=== PATIENT | female | born 1960 | race Caucasian/White ===

== ENCOUNTER 2017-12-14 04:42 | Inpatient (IN) | payer BC ==
[2017-12-06 15:28] VITALS: Ht 174 cm; Wt 120.4 kg
--- NOTE | 2017-12-06 15:51 | PAT Medication Instructions ---
Service Date December 06, 2017. Current Home Medication List Bupropion Hcl (Bupropion Hcl Er), 200 MG PO BID Calcium/Vitamin D (Os-Wong 500 Plus D), 1 TAB PO QAM Diclofenac Sodium (Topical) (Diclofenac Sodium), 1 APPLN TOP UD PRN for Pain Duloxetine HCl (Cymbalta), 60 MG PO QAM Furosemide (Lasix), 20 MG PO QAM Lisinopril (Zestril), 10 MG PO QAM Loratadine (Loratadine), 1 CAP PO QAM Lorazepam (Ativan), 0.5 MG PO UD PRN for ANXIETY Meloxicam (Mobic), 15 MG PO QAM Metformin Hcl (Glucophage), 500 MG PO BID Tramadol HCl (Tramadol HCl), 1 TAB PO QAM Medication Instructions For Your Scheduled Surgery - Hold the following medications the morning of surgery: Calcium/Vitamin D (Os-Wong 500 Plus D), 1 TAB PO QAM Furosemide (Lasix), 20 MG PO QAM Lisinopril (Zestril), 10 MG PO QAM Metformin Hcl (Glucophage), 500 MG PO BID Loratadine (Loratadine), 1 CAP PO QAM Diclofenac Sodium (Topical) (Diclofenac Sodium), 1 APPLN TOP UD PRN for Pain ( otherwise okay to continue per surgeon) Meloxicam (Mobic), 15 MG PO QAM (otherwise okay to continue per surgeon) - Take the following medications the morning of surgery with a sip of water OTHERWISE NOTHING TO EAT OR DRINK AFTER MIDNIGHT: Bupropion Hcl (Bupropion Hcl Er), 200 MG PO BID Duloxetine HCl (Cymbalta), 60 MG PO QAM Lorazepam (Ativan), 0.5 MG PO UD PRN for ANXIETY Tramadol HCl (Tramadol HCl), 1 TAB PO QAM - Take the following medications as scheduled the night before surgery: Bupropion Hcl (Bupropion Hcl Er), 200 MG PO BID Metformin Hcl (Glucophage), 500 MG PO BID Lorazepam (Ativan), 0.5 MG PO UD PRN for ANXIETY If you have any questions please call us at [phone] or [phone] or [phone]
[2017-12-06 16:46] LABS: BASO % 0.4 %; BASO ABS # 0.03 K/uL (0-0.2); EOS ABS # 0.08 K/uL (0-0.5); HEMATOCRIT 43.8 % (37-47); HEMOGLOBIN 14.5 g/dL (12.0-16.0); IG# 0.05 K/uL (0.00-0.02); LYMPH % 30.3 %; LYMPH ABS # 2.39 K/uL (1.2-3.4); MEAN CELL VOLUME 89.4 fL (80-100); MEAN CORPUSCULAR HEMOGLOBIN 29.6 pg (25-34); MEAN CORPUSCULAR HGB CONC 33.1 g/dl (32-36); MEAN PLATELET VOLUME 11.4 fL (7.4-10.4); MONO % 5.6 %; MONO ABS # 0.44 K/uL (0.11-0.59); NEUT % 62.1 %; NEUT ABS # 4.89 K/uL (1.4-6.5); PLATELET COUNT 300 K/uL (130-400); RED CELL DISTRIBUTION WIDTH SD 42.2 fL (36.4-46.3); WHITE BLOOD COUNT 7.88 K/uL (4.8-10.8)
[2017-12-06 16:54] LABS: PTT PATIENT 28.7 SECONDS (21.0-31.0)
[2017-12-06 17:02] LABS: ALBUMIN 3.7 gm/dl (3.4-5.0); CALCIUM 8.8 mg/dl (8.5-10.1); CREATININE 0.8 mg/dl (0.60-1.20); POTASSIUM 3.7 mmol/L (3.5-5.1)
--- NOTE | 2017-12-06 17:29 | DIAGNOSTIC IMAGING REPORT ---
CHEST 2 VIEWS ROUTINE HISTORY: Preop. COMPARISON: None. FINDINGS: The lungs are clear. Cardiac silhouette is normal in size. No pleural effusions. No pneumothorax. IMPRESSION: No acute process. Electronically signed by: Dany Mackay M.D. 12/06/2017 5:27 PM Dictated Date/Time: 12/06/2017 5:27 PM
--- NOTE | 2017-12-13 10:03 | HISTORY & PHYSICAL EXAMINATION ---
DATE OF ADMISSION: 12/14/2017 CHIEF COMPLAINT: Right hip pain. HISTORY OF PRESENT ILLNESS: The patient is a 57-year-old female, seen and evaluated in our office for right hip pain and disability. She takes Meloxicam with minimal relief. She also requires tramadol for pain intermittently. She has pain with activities of daily living. She has pain with prolonged weightbearing and standing activities. She has difficulty with any kneeling, bending, or squatting activities. Due to ongoing pain and disability, she now desires to proceed with right total hip arthroplasty. PAST MEDICAL HISTORY: Obesity, hypertension, type 2 diabetes, depression. PAST SURGICAL HISTORY: Tubal ligation. MEDICATIONS: Bupropion HCL ER 200 mg 2 times daily, calcium plus D 600-800 daily, diclofenac topical gel, Cymbalta 60 mg daily, Lasix 20 mg daily p.r.n., Prinivil 10 mg daily, Claritin 10 mg daily, Ativan 0.5 mg 3 times daily p.r.n. anxiety, meloxicam 50 mg daily, metformin 500 mg twice daily, methocarbamol 750 mg 3 times daily, tramadol 50 mg 3 times daily p.r.n. ALLERGIES: AMITRIPTYLINE WHICH CAUSED SYNCOPE. SOCIAL HISTORY AND REVIEW OF SYSTEMS: Noncontributory. PHYSICAL EXAMINATION: GENERAL: Well-nourished, well-developed, obese female who appears her stated age. HEENT: Normocephalic, atraumatic, extraocular movements intact, oropharynx pink and moist. NECK: Supple without adenopathy. LUNGS: Clear to auscultation bilaterally. HEART: Regular rate and rhythm. ABDOMEN: Soft, nontender, nondistended. EXTREMITIES: The upper extremities are within normal limits. The right hip demonstrates decreased range of motion. There is limitation of active and passive internal/external rotation compared to the left uninvolved. She has pain at end range. X-RAYS: X-rays were reviewed. She has [id number] arthritis of the right hip with complete loss of the joint space. There is evidence of subchondral sclerosis. ASSESSMENT: Right hip degenerative joint disease. PLAN: Risks versus benefits were discussed, consent was obtained. The patient's primary care physician is Michael Rosales PA-C from [place]. We will proceed with right total hip arthroplasty as indicated.
[2017-12-14] VITALS (9 sets, daily range): BP systolic 108–139; BP diastolic 60–86; PULSE 69–83; TEMP 36.4–36.8; O2SAT 93–98
[~2017-12-14] VITALS: Ht 174 cm; Wt 120.4 kg
[~2017-12-14 04:42] MED LIST: BUPR-266 PO; CALC500C70 PO; CYM/30 PO; DICL1GEL34 TOP; FURO-85 PO; GLC/500 PO; LISI-461 PO; LORA-741 PO; LORA10CA10 PO; MELO7.5T5 PO; ULT50 PO
[2017-12-14] MEDS ORDERED: METH-307 PO (05:31)
[2017-12-14] MEDS ORDERED: ACETAMINOPHEN 500 MG TAB PO SCH (06:00)
[2017-12-14] MEDS ORDERED: CeleBREX 200 MG CAP PO SCH (06:00)
[2017-12-14] MEDS ORDERED: GABAPENTIN 300 MG CAP PO SCH (06:00)
[2017-12-14] MEDS ORDERED: LACTATED RINGER'S 1000ML 1,000 ML IV SCH (06:00)
[2017-12-14] MEDS ORDERED: DEXAMETHASONE 4 MG TAB PO SCH (06:00)
[2017-12-14] MEDS ORDERED: METOCLOPRAMIDE HCL 10 MG TAB PO SCH (06:00)
[2017-12-14] MEDS ORDERED: CEFAZOLIN 3000MG IV PUSH 22.5 ML IV SCH (06:00)
[2017-12-14] MEDS ORDERED: FAMOTIDINE 20 MG TAB PO SCH (06:00)
[2017-12-14] MEDS ORDERED: LACTATED RINGER'S 1000ML 500 ML IV SCH (06:00)
[2017-12-14] MEDS ORDERED: MIDAZOLAM HCL 1 MG/ML 2ML VIAL ONE ×2 (06:24)
[2017-12-14] MEDS ORDERED: LIDOCAINE HCL 2% 2 ML VIAL (20MG/ML) ONE (06:24)
[2017-12-14] MEDS ORDERED: PROPOFOL IV EMULSION 10 MG/ML 20 ML VIAL ONE ×2 (06:24→07:50)
[2017-12-14] MEDS ORDERED: FENTANYL CITRATE INJ 50 MCG/1 ML 2 ML VIAL ONE (06:25)
[2017-12-14] MEDS: TRANEXAMIC ACID INJ 1,000 MG in SODIUM CHLORIDE 0.9% 100ML 100 ML IV SCH ×2 (06:30→06:50)
[2017-12-14] MEDS ORDERED: BACITRACIN 50000 UNIT VIAL ONE (06:34)
[2017-12-14] MEDS ORDERED: POVIDONE-IODINE OP SOLN 30 ML BTL ONE (06:34)
[2017-12-14] MEDS ORDERED: BUPIVACAINE 0.5 % 5 MG/1 ML PF 10ML VIAL ONE (06:43)
--- NOTE | 2017-12-14 07:00 | History & Physical Bridge Note ---
H&P Re-Evaluation Bridge Note: I have examined the patient, reviewed the History & Physical and in the interval since the performance of the History & Physical I have noted the following changes of clinical significance: No changes noted
[2017-12-14] MEDS ORDERED: ALUMINUM/MAGNESIUM/SIMETH (MAALOX MAX) 30 ML UDC PO PRN (08:45)
[2017-12-14] MEDS ORDERED: ONDANSETRON INJ 2 MG/ML 2 ML VIAL IV PRN ×2 (08:45→09:00)
[2017-12-14] MEDS ORDERED: MoRPHine SULFATE 4 MG/ML 1 ML CARP\\VIAL IV PRN (08:45)
[2017-12-14] MEDS ORDERED: MAGNESIUM HYDROXIDE SUSP 30 ML UDC PO PRN (08:45)
[2017-12-14] MEDS ORDERED: METOCLOPRAMIDE HCL INJ 5 MG/ML 2 ML VIAL IV PRN (08:45)
[2017-12-14] MEDS ORDERED: ZOLPIDEM TARTRATE 5 MG TAB PO PRN (08:45)
[2017-12-14] MEDS ORDERED: LORAZEPAM 0.5 MG TAB PO PRN (08:45)
[2017-12-14] MEDS: MULTIVITAMIN TAB PO SCH (09:00)
[2017-12-14] MEDS: DOCUSATE SODIUM 100 MG CAP PO SCH ×2 (09:00→20:57)
[2017-12-14] MEDS: FUROSEMIDE 20 MG TAB PO SCH (09:00)
[2017-12-14] MEDS: DULOXETINE HCL 60 MG CAP PO SCH (09:00)
[2017-12-14] MEDS: PANTOprazole SOD 40 MG TAB PO SCH (09:00)
[2017-12-14] MEDS ORDERED: EpHEDrine SULFATE INJ 50 MG/ML AMP IV PRN (09:00)
[2017-12-14] MEDS: LISINOPRIL 10 MG TAB PO SCH (09:00)
[2017-12-14] MEDS ORDERED: PHENYLEPHRINE 100MCG/ML 5ML SYR IV PRN (09:00)
[2017-12-14] MEDS ORDERED: HYDROmorphone INJ 0.5 MG/0.5 ML SYR IV PRN (09:00)
[2017-12-14] MEDS ORDERED: ATROPINE SULFATE 0.1 MG/ML 5ML SYR IV PRN (09:00)
--- NOTE | 2017-12-14 09:22 | DIAGNOSTIC IMAGING REPORT ---
R PELVIS/UNILATERAL HIP 1 VIEW CLINICAL HISTORY: Arthroplasty. COMPARISON: None FINDINGS: Alignment of the total right hip arthroplasty is anatomic. There is no fracture or unexpected radiopaque foreign body. Drains are in place. 2 acetab[address] screws are in place. One acetabular screw extends through the medial cortex. Incidental note is made of tubal ligation clips. IMPRESSION: 1. Status post total right hip arthroplasty. Hardware intact. No periprosthetic fracture or unexpected radiopaque foreign body. 2. One acetabular screw extends through the medial cortex. Electronically signed by: Raza Paul M.D. 12/14/2017 9:21 AM Dictated Date/Time: 12/14/2017 9:17 AM
[2017-12-14] MEDS ORDERED: PHARMACY GLYCEMIC MGMT CONSULT PRN (09:30)
[2017-12-14] MEDS ORDERED: DEXTROSE 50% 50 ML SYR IV PRN (10:00)
[2017-12-14] MEDS ORDERED: GLUCOSE 10 TABS/TUBE PO PRN (10:00)
[2017-12-14] MEDS ORDERED: INSULIN GLARGINE SOLOSTAR 100 UNITS/ML 3 ML PEN SC ONE ×2 (10:00→21:00)
[2017-12-14] MEDS ORDERED: GLUCAGON FOR INJ 1 MG VIAL IM PRN (10:00)
[2017-12-14] MEDS ORDERED: GLUCOSE 40% GEL 15 GM TUBE PO PRN (10:00)
[2017-12-14] MEDS ORDERED: CARBOHYDRATES FOR HYPOGLYCEMIA PO PRN (10:00)
--- NOTE | 2017-12-14 10:04 | Pharmacy Progress Note ---
Glycemic Control Intl Consult Date of Service December 14, 2017. Scope Glycemic Pharmacist consulted by Kevin on 12/14/17 for glycemic control and to write orders per [facility] inpatient glycemic control protocol Objective Weight (Kilograms): 120.4 Accuchecks BSG (last 24hrs): Test 12/14/17 05:11 12/14/17 08:51 Bedside Glucose 141 mg/dl (70-90) 168 mg/dl (70-90) HbA1c Test 12/06/17 15:58 Hemoglobin A1c 6.0 % (4.5-5.6) H Recent Pertinent Medications Outpatient Anti-diabetic Regimen: * metformin 500 mg BID Risk Factors for Insulin Resistance: * Steroids: Ortho mix + dexamethasone 8 mg PO pre-op, dexamethasone 10 mg IV x1 on 12/15 AM * Recent Surgery: POD #0 CANDY * Diet: T2DM Assessment & Plan ASSESSMENT: * 57 yr old female s/p CANDY. * Pt well controlled on metformin as an outpatient. * Oral agents are not recommended for inpatient use d/t drug interactions, changing PO intake, and difficulty titrating for acute hyper/hypoglycemia. ADA recommends re-initiating outpatient oral agents 1-2 days prior to discharge if/ when appropriate if they were held on admission. * Will hold oral agents for admission and utilize SQ basal bolus insulin regimen which is the recommended regimen for inpatient glycemic control. * Will initiate weight based insulin dosing for insulin clarence patient and titrate based on BSG trends. PLAN FOR INPATIENT GLYCEMIC CONTROL: * Holding outpatient oral diabetes medications - will resume once evidence of stable renal function and tolerating oral diet * Basal insulin * Lantus 25 units SQ now * Lantus 0-15 units SQ tonight (15 units if BSG is 150 mg/dL or more) * Bolus Insulin * NOVOLOG per scale ACHS or Q6hrs while NPO * Goal Range: Low 110 mg/dL - High 140 mg/dL * Correction Factor: 18 mg/dL/unit * Nutritional / Prandial insulin per carb ratio of 1 unit per 6 grams CHO consumed * Overnight check with coverage at 00 and 04 for POD#0 DISCHARGE RECOMMENDATIONS: * Good outpatient glycemic control evidenced by A1c of 6% * Continue current regimen of metformin on discharge * Consider supplementation with vitamin B12 to avoid deficiency Thank you.
--- NOTE | 2017-12-14 10:06 | Anesthesiology Progress Note ---
Anesthesia Post Op Note Date & Time December 14, 2017 at 10:06 Vital Signs Pain Intensity: 0 Vital Signs Past 12 Hours Date Time Temp Pulse Resp B/P (MAP) Pulse Ox O2 Delivery O2 Flow Rate FiO2 12/14/17 10:02 69 18 139/86 (103) 12/14/17 09:15 62 16 132/76 97 Room Air 12/14/17 09:05 36.3 61 16 133/65 95 Room Air 12/14/17 08:55 62 16 125/75 98 Room Air 12/14/17 08:45 61 16 121/66 100 Oxymask 3 12/14/17 08:39 36.2 63 18 126/72 100 Oxymask 3 12/14/17 05:44 36.8 76 20 129/60 97 Room Air Notes Mental Status: alert / awake / arousable, participated in evaluation Pt Amnestic to Procedure: Yes Nausea / Vomiting: adequately controlled Pain: adequately controlled Airway Patency, RR, SpO2: stable & adequate BP & HR: stable & adequate Hydration State: stable & adequate Anesthetic Complications: no major complications apparent
--- NOTE | 2017-12-14 10:27 | OPERATIVE REPORT ---
DATE OF OPERATION: 12/14/2017 PREOPERATIVE DIAGNOSIS: Osteoarthritis, right hip. POSTOPERATIVE DIAGNOSIS: Osteoarthritis, right hip. PROCEDURE: Right Norma total hip arthroplasty. SURGEON: Dr. Babb. VICE PRESIDENT CORPORATE COMMUNICATIONS: Dakotah Diaz PA-C. ANESTHESIA: Spinal. COMPLICATIONS: None. OPERATION AND FINDINGS: PROCEDURE: Following induction of adequate spinal anesthesia, the patient was placed in right lateral decubitus position and right Viv-Langenbeck incision was made. Subcutaneous tissue was sharply dissected. Electrocautery used for hemostasis. The fascia was incised throughout the length of the wound and a hodge scissor placed beneath the short external rotators. The pyriformis was tagged with #1 Vicryl. The short external rotators were divided from the posterior aspect of the femur using electrocautery. These were swept posteriorly. A T-capsulotomy incision was made and the hip was dislocated using a combination of flexion, adduction, and internal rotation. Exposure of the femoral neck with old-style Hohmann and a blunt Hohmann was carried out and a femoral rasp was utilized as a guide for making the appropriate level femoral neck cut. This bone fragment was removed and reserved on the back table. Next, attention was turned to the acetabulum where bone hook was used to retract the femur while the offset retractors were placed anterior and posteriorly. A double-angled Hohmann was placed in superior and anterior position exposing the acetabulum nicely. Acetabular labrum as well as posterior capsule elements were removed using a long knife and a long pickup. Fovea centralis was cleared of all soft tissue. Sequential reamings were carried up to a 54 and decision was made to proceed with impaction of a 54 trabecular metal cup. This was impacted and held using a single 35 mm bone screw. The acetabular liner was placed with 15 of elevated posterior wall in the superior and posterior position. Next, attention was turned to the femoral portion of the case where a Bovie and pickup was used to further clear short external rotators from their insertion on the femur. Box osteotome was used to gain access to the femoral canal and the T-handled rasp and a rattail rasp were used to further open and lateral the canal. Sequentially raspings were carried up to a 3, which gave good fit and fill of the proximal femur. A trial reduction was carried out and a 132 degree femoral neck component was chosen as the size to be used. A +0 x 36 mm ceramic femoral head was impacted into position, +0 head was utilized. The trial reduction was stable in all degrees of rotation with no [id number] impingement. The hip was dislocated. The trial components were removed and the final femoral stem, neck, and femoral head combination were assembled on the back table and impacted into position. Hip was relocated. Range of motion checked once again successful and the wound was irrigated. The pyriformis repaired to the greater trochanter using #1 Vicryl [id number] suture. A Hemovac drain was placed and the fascia was closed using #1 Vicryl, subcutaneous tissue was closed using 0 Dexon, and skin was closed with carroll. Sterile dressing of Adaptic, 4 x 4's, ABDs, and foam tape was applied. The patient tolerated the procedure well. Due to the complex nature of the procedure, the entire surgery was performed with the operational assistance of Dakotah Diaz PA-C. The insurance administrative assistant, under direct supervision, was involved in the actual performance of all aspects of the surgical procedure including hemostasis, tissue retraction and incision, instrument management, patient positioning, and wound closure. DISPOSITION: Recovery room, stable. I attest to the content of the Intraoperative Record and any orders documented therein. Any exception s are noted below.
[2017-12-14] MEDS: KETOROLAC TROMETHAMINE 30 MG/ML VIAL IV. SCH ×3 (11:14→22:15)
[2017-12-14] MEDS: INSULIN ASPART 100 UNITS/ML 3 ML PEN SC SCH ×3 (12:47→21:03)
[2017-12-14] MEDS: FERROUS GLUCONATE 324 MG TAB PO SCH ×2 (12:49→17:56)
[2017-12-14] MEDS: ACETAMINOPHEN 500 MG TAB PO SCH ×2 (13:33→22:11)
[2017-12-14] MEDS: SODIUM CHLORIDE 0.9% 1000ML 1,000 ML IV SCH ×2 (13:34→22:18)
[2017-12-14] MEDS: CEFAZOLIN IV 3,000 MG in SYRINGE 0 ML IV SCH ×2 (14:27→22:09)
[2017-12-14] MEDS: ASPIRIN 81 MG ECTAB PO SCH (20:55)
[2017-12-14] MEDS: BuPROPion SR 100 MG TABCR PO SCH (20:57)
[2017-12-15] MEDS: OXYCODONE HCL IR 5 MG TAB (IMMEDIATE RELEASE) PO PRN ×4 (00:20→13:47)
[2017-12-15 04:00] VITALS: BP 110/57; PULSE 67; TEMP 36.6; O2SAT 98
[2017-12-15] MEDS: KETOROLAC TROMETHAMINE 30 MG/ML VIAL IV. SCH (04:00)
[2017-12-15] MEDS: INSULIN ASPART 100 UNITS/ML 3 ML PEN SC SCH ×4 (04:00→13:03)
[2017-12-15] MEDS ORDERED: ROPIVACAINE 5MG/ML 30 ML 150 MG, BUPIVACAINE 0.5% MPF INJ 30 ML, EpINEphrine HCL INJ 0.... INFIL SCH ×8 (06:00)
[2017-12-15] MEDS: ACETAMINOPHEN 500 MG TAB PO SCH ×2 (06:11→13:48)
[2017-12-15] MEDS: SODIUM CHLORIDE 0.9% 1000ML 1,000 ML IV SCH (06:11)
[2017-12-15 06:49] LABS: BASO % 0.1 %; BASO ABS # 0.01 K/uL (0-0.2); EOS % 0.2 %; EOS ABS # 0.02 K/uL (0-0.5); HEMATOCRIT 31.6 % (37-47); HEMOGLOBIN 10.5 g/dL (12.0-16.0); IG# 0.03 K/uL (0.00-0.02); LYMPH % 16.3 %; MEAN CELL VOLUME 89.3 fL (80-100); MEAN CORPUSCULAR HEMOGLOBIN 29.7 pg (25-34); MEAN CORPUSCULAR HGB CONC 33.2 g/dl (32-36); MONO ABS # 0.84 K/uL (0.11-0.59); NEUT % 75.1 %; NEUT ABS # 7.84 K/uL (1.4-6.5); PLATELET COUNT 237 K/uL (130-400); RED CELL DISTRIBUTION WIDTH CV 12.6 % (11.5-14.5); RED CELL DISTRIBUTION WIDTH SD 40.9 fL (36.4-46.3); WHITE BLOOD COUNT 10.44 K/uL (4.8-10.8)
[2017-12-15 07:20] LABS: CALCIUM 7.8 mg/dl (8.5-10.1); CREATININE 0.78 mg/dl (0.60-1.20)
[2017-12-15] MEDS ORDERED: DEXAMETHASONE INJ 10 MG in SYRINGE 0 ML IV ONE (07:30)
--- NOTE | 2017-12-15 07:32 | Orthopedic Progress Note ---
Orthopedic Progress Note Date of Service December 15, 2017. Subjective Post OP Day: 1 Reports: feeling well, Denies: complaints Additional Notes: Hoping to go home today. Objective calves soft nontender, N/V intact, hip located, dressing C/D/I, A&O x3, toes mobile Date Time Temp Pulse Resp B/P (MAP) Pulse Ox O2 Delivery O2 Flow Rate FiO2 12/15/17 04:00 36.6 67 15 110/57 (74) 98 Room Air 12/15/17 00:17 Room Air 12/14/17 23:06 36.8 75 16 120/65 (83) 95 Room Air 12/14/17 19:23 36.5 77 18 117/66 (83) 96 Room Air 12/14/17 15:20 Room Air 12/14/17 15:18 36.6 80 18 108/67 (81) 96 Room Air 12/14/17 12:20 36.6 82 18 124/80 (95) 93 Room Air 12/14/17 11:23 83 18 130/76 (94) 12/14/17 10:27 36.4 78 18 124/86 (99) 98 Room Air 12/14/17 10:02 69 18 139/86 (103) 12/14/17 09:30 Room Air 12/14/17 09:30 36.8 70 16 122/77 (92) 98 Room Air 12/14/17 09:30 Room Air 12/14/17 09:15 62 16 132/76 97 Room Air 12/14/17 09:05 36.3 61 16 133/65 95 Room Air 12/14/17 08:55 62 16 125/75 98 Room Air 12/14/17 08:45 61 16 121/66 100 Oxymask 3 12/14/17 08:39 36.2 63 18 126/72 100 Oxymask 3 Laboratory Results 24 Hours: Test 12/15/17 06:24 White Blood Count 10.44 K/uL Red Blood Count 3.54 M/uL Hemoglobin 10.5 g/dL Hematocrit 31.6 % Mean Corpuscular Volume 89.3 fL Mean Corpuscular Hemoglobin 29.7 pg Mean Corpuscular Hemoglobin Concent 33.2 g/dl Platelet Count 237 K/uL Mean Platelet Volume 11.0 fL Neutrophils (%) (Auto) 75.1 % Lymphocytes (%) (Auto) 16.3 % Monocytes (%) (Auto) 8.0 % Eosinophils (%) (Auto) 0.2 % Basophils (%) (Auto) 0.1 % Neutrophils # (Auto) 7.84 K/uL Lymphocytes # (Auto) 1.70 K/uL Monocytes # (Auto) 0.84 K/uL Eosinophils # (Auto) 0.02 K/uL Basophils # (Auto) 0.01 K/uL Assessment & Plan Assessment: POD 1 s/p Right CANDY Acute Blood Loss Anemia due to surgical loss/dilutional effect Plan: PT/OT Plan for dc to home today if progressing in PT Inhouse Planning Pain Management: Celebrex, Toradol, Morphine, PO Tylenol, Oxy IR DVT Prophylaxis: TEDs, SCDs, ASA Discharge Planning Discharge Planning: home with home health
[2017-12-15 07:33] VITALS: BP 109/66; PULSE 65; TEMP 36.5; O2SAT 97
[2017-12-15] MEDS ORDERED: ACET-24 PO (07:36)
[2017-12-15] MEDS ORDERED: SENN1TAB80 PO (07:36)
[2017-12-15] MEDS ORDERED: CLB200 PO (07:36)
[2017-12-15] MEDS ORDERED: ASPI-320 PO (07:36)
[2017-12-15] MEDS ORDERED: RXC5 PO (07:36)
--- NOTE | 2017-12-15 07:40 | Discharge Instructions ---
Discharge Instructions Date of Service December 15, 2017. Admission Reason for Admission: Right Hip Other Specified Arthritis Discharge Discharge Diagnosis / Problem: Right Hip Djd Discharge Goals Goal(s): Decrease discomfort, Improve function, Increase independence Activity Recommendations Activity Limitations: per Instructions/Follow-up section Weightbearing Status: Right weightbearing (as tolerated) . Instructions / Follow-Up Instructions / Follow-Up ACTIVITY RECOMMENDATIONS: SELF CARE INSTRUCTIONS AFTER TOTAL HIP REPLACEMENT Until the incision and soft tissues around your hip have healed, there is a possibility that the hip prosthesis could dislocate. A. Observe the following precautions to prevent dislocation: 1. Don't bend your hip greater than 90 degrees. 2. Avoid crossing your legs or ankles while standing or lying. 3. Sit with your feet placed 6 inches apart. 4. When sitting, keep your knees below your hips. Sit on a firm surface, avoid deep, soft chairs and couches. Use an elevated toilet seat in the bathroom. 5. Don't bend over at the waist. Use a long handled shoehorn and a sock aid to help you put on your shoes and socks. A electric melt operator can help you pickle cutter objects that are too high or too low to reach. 6. Keep car riding to a minimum for at least one month after surgery. B. Your balance may be shaky for a while. Use crutches or a walker until directed by your doctor. C. Use hand rails when walking on stairs. D. Wear low heeled shoes with non-slip soles. E. Be sure that your floors are free of things that could trip you - throw rugs , electrical cords, small objects. Avoid wet and waxed floors, especially with crutches and canes. F. Try to walk several times a day with rest periods between. G. Continue with all the exercises taught to you in the hospital. Again, make walking a part of your daily routine. SPECIAL CARE INSTRUCTIONS: VERY IMPORTANT TO READ AND REVIEW A. You may still be at risk for phlebitis and blood clots. 1. Wear surgical stockings (SHAWNA hose) for 2 weeks after surgery to improve circulation and reduce swelling. 2. Take Aspirin 81mg twice daily for 4 weeks or as directed by your doctor. This is your blood thinner. 3. High risk patients may be prescribed a stronger blood thinner if necessary. 4. If you are on Coumadin normally, your family doctor/oven stripper should monitor your blood work. Expect a phone call the day of or the day after bloodwork is drawn to adjust your dosage. B. You must take antibiotics before having dental work, bladder, bowel and other surgery. Your doctor will provide you with a permanent card to carry describing precautions. C. Call [facility] if you have a fever, redness or swelling around the incision, cloudy drainage from incision, or sudden increase in pain in your hip, not relieved by your regular pain medication. D. Please call the office at if you have any concerns or questions about your operation or recovery. * YOU MAY SHOWER, NO TUB BATHS UNTIL CLEARED BY YOUR DOCTOR. * WEAR SHAWNA HOSE 20 HOURS PER DAY FOR 2 WEEKS. * YOU SHOULD USE A WALKER OR CRUTCHES FOR 2-4 WEEKS. THIS WILL HELP PREVENT STRAIN ON YOUR HIP MUSCLE AND ALLOW IT TO HEAL PROPERLY. YOU MAY WEAN TO A CANE TOLERATED. * MOST PATIENTS WILL HAVE HOME NURSING FOR THERAPY. IF YOU DECIDE TO DO OUTPATIENT PHYSICAL THERAPY, PLEASE SCHEDULE THIS 3 TIMES PER WEEK. * You have a Zipline Closure System. As noted below, this keeps your incision closed. Change the dressing daily. Keep the wound covered with a dressing as it has the potential to snag on your clothing. The Zipline will remain on for a total of 2 weeks. Do not remove it! You may shower with this on. Do not soak it; no tub baths. You will be given instructions by nursing staff at the time of discharge to care for your Zip Closure System. This devices uses plastic straps to keep your incision closed and protected throughout your recovery. If you have any questions please refer to these instructions first. . FOLLOW UP VISIT: If appointment is not already scheduled: Please call [facility] to make a follow-up appointment for 2 weeks after your surgery at . Current Hospital Diet Patient's current hospital diet: Diabetes Type 2 Diet Discharge Diet Recommended Diet: Diabetes Type 2 Diet Procedures Procedures Performed: Right Total Hip Arthroplasty, Uncemented Pending Studies Studies pending at discharge: no Laboratory Results Hemoglobin A1c Test 12/06/17 15:58 Range/Units Estimated Average Glucose 126 mg/dl Hemoglobin A1c 6.0 H 4.5-5.6 % Medical Emergencies . Who to Call and When: Medical Emergencies: If at any time you feel your situation is an emergency, please call 911 immediately. . Non-Emergent Contact Non-Emergency issues call your: Surgeon Call Non-Emergent contact if: temperature is above 101.5, your pain is not controlled, your pain is worsening, wound has increased drainage, wound has increased redness . "Provider Documentation" section prepared by Jonathan Miller. . [place] Drug Monitoring Program Search Results: patient reviewed within database, no issues identified
[2017-12-15] MEDS: ASPIRIN 81 MG ECTAB PO SCH (08:09)
[2017-12-15] MEDS: FERROUS GLUCONATE 324 MG TAB PO SCH ×2 (08:10→12:58)
[2017-12-15] MEDS: FUROSEMIDE 20 MG TAB PO SCH (08:10)
[2017-12-15] MEDS: DULOXETINE HCL 60 MG CAP PO SCH (08:10)
[2017-12-15] MEDS: MULTIVITAMIN TAB PO SCH (08:10)
[2017-12-15] MEDS: LISINOPRIL 10 MG TAB PO SCH (08:11)
[2017-12-15] MEDS: PANTOprazole SOD 40 MG TAB PO SCH (08:11)
[2017-12-15] MEDS: BuPROPion SR 100 MG TABCR PO SCH (08:12)
--- NOTE | 2017-12-15 08:34 | Anesthesiology Progress Note ---
Anesthesia Post Op Note Date & Time December 15, 2017 at 08:33 Vital Signs Pain Intensity: 6.0 Vital Signs Past 12 Hours Date Time Temp Pulse Resp B/P (MAP) Pulse Ox O2 Delivery O2 Flow Rate FiO2 12/15/17 07:33 36.5 65 18 109/66 (80) 97 Room Air 12/15/17 04:00 36.6 67 15 110/57 (74) 98 Room Air 12/15/17 00:17 Room Air 12/14/17 23:06 36.8 75 16 120/65 (83) 95 Room Air Notes Mental Status: alert / awake / arousable, participated in evaluation Pt Amnestic to Procedure: Yes Nausea / Vomiting: adequately controlled Pain: adequately controlled Airway Patency, RR, SpO2: stable & adequate BP & HR: stable & adequate Hydration State: stable & adequate Anesthetic Complications: no major complications apparent
[2017-12-15 08:50] VITALS: BP 121/72
[2017-12-15] MEDS: DOCUSATE SODIUM 100 MG CAP PO SCH (08:51)
[2017-12-15] MEDS ORDERED: INSULIN GLARGINE SOLOSTAR 100 UNITS/ML 3 ML PEN SC ONE ×2 (09:00→17:45)
--- NOTE | 2017-12-15 09:07 | Pharmacy Progress Note ---
Pharmacy Glycemic Short Note 2 Date of Service December 15, 2017. OUTPATIENT ANTIDIABETIC REGIMEN: * metformin 500 mg BID * HbA1c 6% (12/06/17) Item Value Date Time Bedside Glucose 168 mg/dl H 12/14/17 0851 Bedside Glucose 216 mg/dl H 12/14/17 1206 Bedside Glucose 152 mg/dl H 12/14/17 1651 Bedside Glucose 154 mg/dl H 12/14/17 2032 Bedside Glucose 118 mg/dl H 12/15/17 0013 Bedside Glucose 136 mg/dl H 12/15/17 0401 Bedside Glucose 137 mg/dl H 12/15/17 0801 ASSESSMENT: * 57 yr old female POD #1 s/p CANDY. SQ basal + bolus insulin have been utilized in the setting of high dose steroids. Patient was administered dexamethasone 10 mg IV this AM - no further steroids ordered. * Will target glucose levels < 150 mg/dL to reduce the risk of post-operative infection, readmission, etc. * BSGs well controlled - patient received a total of 61 units of insulin yesterday * Fasting BSG of 137 mg/dL is at goal - will continue aggressive basal insulin dosing today to assist in coverage of steroid induced hyperglycemia. I anticipate no further basal insulin being needed beyond today. * Post prandial BSGs also at goal. Tighten CF/CR to weight, stress of 3 for today. PLAN FOR INPATIENT GLYCEMIC CONTROL: * Resume metformin 500 mg PO BID tonight - evidence of stable renal function and tolerating oral diet * Basal insulin * Lantus 30 units SQ AM * Lantus 10-18 units SQ with dinner - 18 units if BSG is 150 mg/dL or more * Bolus insulin - tighten * NovoLog per scale ACHS or Q6hrs while NPO * Goal Range: Low 110 mg/dL - High 140 mg/dL * Correction Factor: 15 mg/dL/unit - will loosen on 12/16 am * Nutritional / Prandial insulin per carb ratio of 1 unit per 4 grams CHO consumed - will loosen on 12/16 am DISCHARGE RECOMMENDATIONS: * Good outpatient glycemic control evidenced by A1c of 6% * Continue current regimen of metformin on discharge * Consider supplementation with vitamin B12 to avoid deficiency Thank you.
[2017-12-15 11:24] VITALS: BP 118/66; PULSE 71; TEMP 36.9; O2SAT 97
[2017-12-15 11:33] VITALS: BP 118/66; PULSE 71; TEMP 36.9; O2SAT 97
[2017-12-15] MEDS ORDERED: METFORMIN HCL 500 MG TAB PO SCH (17:45)
[2017-12-15] MEDS ORDERED: CeleBREX 200 MG CAP PO SCH (21:00)
== END 2017-12-15 14:36 | disposition home health service (06) | DRG 470 ==
LOC: C.ACU 04:42 → C.3E 08:47 → ENRESERV 08:55
PROC: 0SR903A Replacement of Right Hip Joint with Ceramic Synthetic Substitute, Uncemented, Open Approach (ICD-10-PCS; principal; 2017-12-14 07:00)
DX: M16.11 Unilateral primary osteoarthritis, right hip (principal); D62 Acute posthemorrhagic anemia; I10 Essential (primary) hypertension; E11.9 Type 2 diabetes mellitus without complications; F32.9 Major depressive disorder, single episode, unspecified; E66.9 Obesity, unspecified; Z79.84 Long term (current) use of oral hypoglycemic drugs; Z79.899 Other long term (current) drug therapy; Z88.8 Allergy status to other drugs, medicaments and biological substances; Z68.39 Body mass index [BMI] 39.0-39.9, adult